=== PATIENT | male | born 1965 | race Caucasian/White ===

== ENCOUNTER 2017-12-25 14:01 | Inpatient (IN) | payer OTHER ==
[2017-12-25 15:26] VITALS: BMI 25.0
--- NOTE | 2017-12-25 20:52 | HP ---
CIWA Score - CIWA Score Nausea/Vomitin-No Nausea/No Vomiting Muscle Tremors: 4-Moderate,w/Arms Extend Anxiety: 3 Agitation: 3 Paroxysmal Sweats: 3 Orientation: 3-Disoriented Date>2 days Tacttile Disturbances: 0-None Auditory Disturbances: 0-None Visual Disturbances: 0-None Headache: 0-None Present CIWA-Ar Total Score: 16 Admission ROS BHS - HPI Chief Complaint: SEEKING DETOX FOR ALCOHOLISM AND WITHDRAWAL SX'S Allergies/Adverse Reactions: Allergies Allergy/AdvReac Type Severity Reaction Status Date / Time No Known Allergies Allergy Verified 12/25/17 19:33 History of Present Illness: 52 Y.O. MALE WITH LONG HX/O ALCOHOLISM HERE FOR DETOX. SELF REFERRED. CLIENT IS KNOWN TO THIS PROGRAM. LAST HERE IN 2014. DENIES ANY DETOX SINCE. DENIES ANY SIGNIFICANT PERIOD OF CLEAN TIME. REPORTS HX/ OF NICOTINE DEP. DENIES MENTAL HEALTH, PAST, PRESENT SI/HI AND A/V HALLUCINATIONS Exam Limitations: No Limitations - Ebola screening Have you traveled outside of the country in the last 21 days: No (N) Have you had contact with anyone from an Ebola affected area: No Have you been sick,other than usual withdrawal symptoms: No Do you have a fever: No - Review of Systems Constitutional: Chills, Night Sweats EENT: reports: No Symptoms Reported Respiratory: reports: Cough Cardiac: reports: No Symptoms Reported GI: reports: Diarrhea, Poor Fluid Intake : reports: Frequency Musculoskeletal: reports: No Symptoms Reported Integumentary: reports: No Symptoms Reported Neuro: reports: No Symptoms reported Endocrine: reports: No Symptoms Reported Hematology: reports: No Symptoms Reported Psychiatric: reports: Anxious Other Systems: Reviewed and Negative Patient History - Patient Medical History Hx Anemia: No Hx Asthma: No Hx Chronic Obstructive Pulmonary Disease (COPD): No Hx Cancer: No Hx Cardiac Disorders: No Hx Congestive Heart Failure: No Hx Hypertension: No Hx Hypercholesterolemia: No Hx Pacemaker: No HX Cerebrovascular Accident: No Hx Seizures: No Hx Dementia: No Hx Diabetes: No Hx Gastrointestinal Disorders: No Hx Liver Disease: No Hx Genitourinary Disorders: No Hx Sexually Transmitted Disorders: No Hx Renal Disease (ESRD): No Hx Thyroid Disease: No Hx Human Immunodeficiency Virus (HIV): No Hx Hepatitis C: No Hx Depression: Yes (NO MED MGMT) Hx Suicide Attempt: No Hx Bipolar Disorder: No Hx Schizophrenia: No - Patient Surgical History Past Surgical History: Yes Hx Orthopedic Surgery: Yes (Nasal fx sx at age 7 yrs old.) Other Surgical History: REPAIR OF FRACTURE OF NASAL SEPTUM AGE 7 - PPD History Previous Implant?: Yes Documented Results: Negative w/proof Implanted On Prior [facility] Admission?: Yes Date: 01/16/15 PPD to be Administered?: Yes - Smoking Cessation Smoking history: Current every day smoker Have you smoked in the past 12 months: Yes Aproximately how many cigarettes per day: 30 Cigars Per Day: 0 Hx Chewing Tobacco Use: No Initiated information on smoking cessation: Yes 'Breaking Loose' booklet given: 12/25/17 - Substance & Tx. History Hx Alcohol Use: Yes Hx Substance Use: Yes Substance Use Type: Alcohol, Marijuana Hx Substance Use Treatment: Yes ([facility]) - Substances Abused BEER Route: Oral Frequency: Daily Amount used: OZ CANS Age of first use: 15 Date of Last Use: 12/25/17 THC Route: Smoking Frequency: Daily Amount used: DIME Age of first use: 15 Date of Last Use: 12/25/17 Family Disease History - Family Disease History Family Disease History: Diabetes: Father, Heart Disease: Father, Other: Brother (ALCOHOL) Admission Physical Exam S - Vital Signs Vital Signs: Vital Signs - 24 hr 12/25/17 15:25 Temperature 97.1 F L Pulse Rate 105 H Respiratory 18 Rate Blood Pressure 125/86 - Physical General Appearance: Yes: Appropriately Dressed, Alcohol on Breath, Tremorous, Anxious HEENTM: Yes: EOMI, Normocephalic, Normal Voice (TALKATIVE), JEREL, Pharynx Normal , Other (DRY MUCOUS MEMBRANES) Respiratory: Yes: Chest Non-Tender, Lungs Clear, Normal Breath Sounds, No Respiratory Distress, No Accessory Muscle Use, Other (NON PRODUCITVE COUGH) Neck: Yes: No masses,lesions,Nodules, Supple, Trachea in good position Breast: Yes: Breast Exam Deferred Cardiology: Yes: Regular Rhythm, Regular Rate, S1, S2 Abdominal: Yes: Normal Bowel Sounds, Non Tender, Flat, Soft Genitourinary: Yes: Within Normal Limits Back: Yes: Normal Inspection Musculoskeletal: Yes: full range of Motion, Gait Steady Extremities: Yes: Normal Capillary Refill, Normal Range of Motion, Non-Tender, Tremors 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, Fully Oriented, Alert, Motor Strength 5/5, Disoriented (REOEINTED TO DATE) Integumentary: Yes: Warm, Moist, Other (FLUSHING) Lymphatic: Yes: Within Normal Limits - Diagnostic (1) Alcohol dependence with uncomplicated withdrawal Current Visit: Yes Status: Chronic (2) Cannabis abuse, uncomplicated Current Visit: Yes Status: Chronic (3) Dry mucous membranes Current Visit: Yes Status: Acute (4) Nicotine dependence Current Visit: Yes Status: Chronic Qualifiers: Nicotine product type: cigarettes Substance use status: uncomplicated Qualified Code(s): F17.210 - Nicotine dependence, cigarettes, uncomplicated (5) Drug-induced mood disorder Current Visit: Yes Status: Suspected Cleared for Admission [facility] - Detox or Rehab [facility] Level of Care: Medically Managed Detox Regimen/Protocol: Librium Claeared for Rehab Admission: No S Breath Alcohol Content Breath Alcohol Content: 0.148 Urine Drug Screen - Results Drug Screen Negative: No Urine Drug Screen Results: THC-Marijuana
[2017-12-25] MEDS ORDERED: MAGNESIUM HYDROX 2400MG/30ML ORAL SUSPENSION 30 ML CUP PO PRN (21:05)
[2017-12-25] MEDS ORDERED: guaiFENesin/D-METHORPHAN HB 10 ML UNIT-DOSE CUPS PO PRN (21:05)
[2017-12-25] MEDS ORDERED: LOPERAMIDE HCL 2 MG CAPSULE PO PRN (21:05)
[2017-12-25] MEDS ORDERED: NICOTINE POLACRILEX 4 MG GUM BUC PRN (21:05)
[2017-12-25] MEDS ORDERED: ACETAMINOPHEN 325 MG TABLET (FP) PO PRN (21:11)
[2017-12-25] MEDS ORDERED: hydrOXYzine PAMOATE 50 MG CAPSULE (FP) PO PRN (21:12)
[2017-12-25] MEDS ORDERED: MAG HYDROX/AL HYDROX/SIMETH 30 ML UNIT-DOSE CUP PO PRN (21:12)
[2017-12-25] MEDS ORDERED: MAGNESIUM CITRATE 300 ML BOTTLE PO PRN (21:12)
[2017-12-25] MEDS ORDERED: IBUPROFEN 400 MG TABLET (FP) PO PRN (21:12)
[2017-12-25] MEDS ORDERED: P-EPHED 60MG/TRIPROLIDI 2.5MG TABLET PO PRN (21:14)
[2017-12-25] MEDS ORDERED: MELATONIN 5 MG TABLETS PO PRN (22:00)
[2017-12-25] MEDS: chlordiazePOXIDE HCL 25 MG CAPSULE PO SCH (22:30)
[2017-12-25] MEDS: THIAMINE HCL 100 MG TABLET (FP) PO SCH (22:30)
[2017-12-26] MEDS: chlordiazePOXIDE HCL 25 MG CAPSULE PO SCH ×4 (05:15→22:43)
[2017-12-26] MEDS: NICOTINE 21 MG/24 HOURS TOPICAL PATCH TD SCH (10:09)
[2017-12-26] MEDS: PRENATAL VITAMINS W/ FOLIC ACID TABLET (FP) PO SCH (10:09)
[2017-12-26 10:11] LABS: HEMOGLOBIN 16.7 GM/dL (11.7-16.9); MCH 30.1 pg (25.7-33.7); MCHC 34.1 g/dl (32.0-35.9); MEAN CELL VOLUME 88.1 fl (80-96); MEAN PLT VOLUME 9.7 fl (7.5-11.1); PLATELET COUNT 184 K/MM3 (134-434); RBC 5.57 M/mm3 (4.00-5.60); RDW 13.8 % (11.9-15.9); WHITE BLOOD COUNT 8.6 K/mm3 (4.0-10.0)
[2017-12-26 10:17] LABS: ALBUMIN 4.2 g/dl (3.4-5.0); ANION GAP 6 (8-16); BLOOD UREA NITROGEN 15 mg/dL (7-18); CALCIUM 8.9 mg/dL (8.5-10.1); CHLORIDE 103 mmol/L (98-107); CO2 31 mmol/L (21-32); CREATININE 0.9 mg/dL (0.7-1.3); GLUCOSE,RANDOM 97 mg/dL (74-106); POTASSIUM 4.3 mmol/L (3.5-5.1); SGOT/AST 27 U/L (15-37); SGPT/ALT 34 U/L (12-78); SODIUM 140 mmol/L (136-145)
[2017-12-26 10:19] LABS: ALK PHOS 75 U/L (45-117); BILIRUBIN,TOTAL 1.4 mg/dL (0.2-1.0); TOT PROT 7.8 g/dl (6.4-8.2)
--- NOTE | 2017-12-26 11:15 | PN ---
S CIWA - CIWA Score Nausea/Vomitin-Mild Nausea/No Vomiting Muscle Tremors: 4-Moderate,w/Arms Extend Anxiety: 3 Agitation: 3 Paroxysmal Sweats: 1-Minimal Palms Moist Orientation: 0-Oriented Tacttile Disturbances: 1-Very Mild Itch/Numbness Auditory Disturbances: 0-None Visual Disturbances: 0-None Headache: 0-None Present CIWA-Ar Total Score: 13 BHS Progress Note (SOAP) Subjective: sweat tremor anxiety restlessness trouble sleep at night gi distress Objective: 12/26/17 11:19 Vital Signs Temperature 96.4 F L 12/26/17 10:20 Pulse Rate 87 12/26/17 10:20 Respiratory Rate 20 12/26/17 10:20 Blood Pressure 124/88 12/26/17 10:20 O2 Sat by Pulse Oximetry (%) Laboratory Last Values WBC 8.6 K/mm3 (4.0-10.0) D 12/26/17 07:30 RBC 5.57 M/mm3 (4.00-5.60) 12/26/17 07:30 Hgb 16.7 GM/dL (11.7-16.9) 12/26/17 07:30 Hct 49.0 % (35.4-49) 12/26/17 07:30 MCV 88.1 fl (80-96) 12/26/17 07:30 MCH 30.1 pg (25.7-33.7) 12/26/17 07:30 MCHC 34.1 g/dl (32.0-35.9) 12/26/17 07:30 RDW 13.8 % (11.9-15.9) 12/26/17 07:30 Plt Count 184 K/MM3 (134-434) 12/26/17 07:30 MPV 9.7 fl (7.5-11.1) 12/26/17 07:30 Sodium 140 mmol/L (136-145) 12/26/17 07:30 Potassium 4.3 mmol/L (3.5-5.1) 12/26/17 07:30 Chloride 103 mmol/L (98-107) 12/26/17 07:30 Carbon Dioxide 31 mmol/L (21-32) D 12/26/17 07:30 Anion Gap 6 (8-16) L 12/26/17 07:30 BUN 15 mg/dL (7-18) 12/26/17 07:30 Creatinine 0.9 mg/dL (0.7-1.3) D 12/26/17 07:30 Creat Clearance w eGFR > 60 (>60) 12/26/17 07:30 Random Glucose 97 mg/dL (74-106) 12/26/17 07:30 Calcium 8.9 mg/dL (8.5-10.1) 12/26/17 07:30 Total Bilirubin 1.4 mg/dL (0.2-1.0) H D 12/26/17 07:30 AST 27 U/L (15-37) D 12/26/17 07:30 ALT 34 U/L (12-78) D 12/26/17 07:30 Alkaline Phosphatase 75 U/L (45-117) 12/26/17 07:30 Total Protein 7.8 g/dl (6.4-8.2) 12/26/17 07:30 Albumin 4.2 g/dl (3.4-5.0) 12/26/17 07:30 lab noted Assessment: 12/26/17 11:19 withdrawal sx Plan: continue detox
--- NOTE | 2017-12-26 12:04 | EKG ---
Test Reason : Blood Pressure : / mmHG Vent. Rate : 071 BPM Atrial Rate : 071 BPM P-R Int : 180 ms QRS Dur : 092 ms QT Int : 396 ms P-R-T Axes : 032 -18 011 degrees QTc Int : 430 ms NORMAL SINUS RHYTHM MINIMAL VOLTAGE CRITERIA FOR LVH, MAY BE NORMAL VARIANT BORDERLINE ECG NO PREVIOUS ECGS AVAILABLE Confirmed by ROSALBA JACK MD ([id number]) on 12/26/2017 12:04:02 PM Referred By: Confirmed By:ROSALBA JACK MD
[2017-12-26] MEDS: MENTHOL/PHENOL 1 EACH UD MM PRN (17:38)
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
[2017-12-26] MEDS: THIAMINE HCL 100 MG TABLET (FP) PO SCH (22:44)
[2017-12-27] MEDS: MENTHOL/PHENOL 1 EACH UD MM PRN ×5 (03:29→23:46)
[2017-12-27] MEDS: chlordiazePOXIDE HCL 25 MG CAPSULE PO SCH ×3 (06:19→16:57)
--- NOTE | 2017-12-27 06:52 | PN ---
[facility] Progress Note Note: I was called by the nurse, Ms. Michael Macias to evaluate patient who wanted to speak to a doctor. Patient complained that he has no privacy and would prefer a private room. He reports that the Psychiatrist was talking to his room mate with the blind drawn and he feels that was not enough privacy. Patient was incoherent and unable to specify what he wanted. In the middle of his dialogue, he asked me, " what is your name again doctor" I told him that I am a nurse practitioner and will provide him the care he needs. Patient states, " Oh, I want to talk to a real doctor, not a nurse." Nurse informed to leave a message in the book for an MD to see him. Psych. consult initiated. Will endorsed to the incoming shift to follow up.
--- NOTE | 2017-12-27 10:02 | PN ---
[facility] CIWA - CIWA Score Nausea/Vomitin-Mild Nausea/No Vomiting Muscle Tremors: 3 Anxiety: 3 Agitation: 2 Paroxysmal Sweats: 1-Minimal Palms Moist Orientation: 0-Oriented Tacttile Disturbances: 1-Very Mild Itch/Numbness Auditory Disturbances: 0-None Visual Disturbances: 0-None Headache: 0-None Present CIWA-Ar Total Score: 11 BHS Progress Note (SOAP) Subjective: patient preferred to discuss issues and concerns with MD the caption writer and MD met with the patient that the patient wants to go to [facility] outpatient aftercare addiction sweat tremor anxiety restlessness Objective: 12/27/17 10:01 Vital Signs Temperature 96.8 F L 12/27/17 06:40 Pulse Rate 68 12/27/17 06:40 Respiratory Rate 20 12/27/17 06:40 Blood Pressure 126/85 12/27/17 06:40 O2 Sat by Pulse Oximetry (%) Laboratory Last Values WBC 8.6 K/mm3 (4.0-10.0) D 12/26/17 07:30 RBC 5.57 M/mm3 (4.00-5.60) 12/26/17 07:30 Hgb 16.7 GM/dL (11.7-16.9) 12/26/17 07:30 Hct 49.0 % (35.4-49) 12/26/17 07:30 MCV 88.1 fl (80-96) 12/26/17 07:30 MCH 30.1 pg (25.7-33.7) 12/26/17 07:30 MCHC 34.1 g/dl (32.0-35.9) 12/26/17 07:30 RDW 13.8 % (11.9-15.9) 12/26/17 07:30 Plt Count 184 K/MM3 (134-434) 12/26/17 07:30 MPV 9.7 fl (7.5-11.1) 12/26/17 07:30 Sodium 140 mmol/L (136-145) 12/26/17 07:30 Potassium 4.3 mmol/L (3.5-5.1) 12/26/17 07:30 Chloride 103 mmol/L (98-107) 12/26/17 07:30 Carbon Dioxide 31 mmol/L (21-32) D 12/26/17 07:30 Anion Gap 6 (8-16) L 12/26/17 07:30 BUN 15 mg/dL (7-18) 12/26/17 07:30 Creatinine 0.9 mg/dL (0.7-1.3) D 12/26/17 07:30 Creat Clearance w eGFR > 60 (>60) 12/26/17 07:30 Random Glucose 97 mg/dL (74-106) 12/26/17 07:30 Calcium 8.9 mg/dL (8.5-10.1) 12/26/17 07:30 Total Bilirubin 1.4 mg/dL (0.2-1.0) H D 12/26/17 07:30 AST 27 U/L (15-37) D 12/26/17 07:30 ALT 34 U/L (12-78) D 12/26/17 07:30 Alkaline Phosphatase 75 U/L (45-117) 12/26/17 07:30 Total Protein 7.8 g/dl (6.4-8.2) 12/26/17 07:30 Albumin 4.2 g/dl (3.4-5.0) 12/26/17 07:30 RPR Titer Nonreactive (NONREACTIVE) 12/26/17 07:30 lab noted Assessment: 12/27/17 10:02 withdrawal sx Plan: continue detox
[2017-12-27] MEDS: PRENATAL VITAMINS W/ FOLIC ACID TABLET (FP) PO SCH (10:09)
[2017-12-27] MEDS: NICOTINE 21 MG/24 HOURS TOPICAL PATCH TD SCH (10:10)
[2017-12-27] MEDS: chlordiazePOXIDE HCL 25 MG CAPSULE PO PRN (18:25)
[2017-12-27] MEDS: THIAMINE HCL 100 MG TABLET (FP) PO SCH (22:45)
[2017-12-27] MEDS: chlordiazePOXIDE 5 MG CAPSULE PO SCH (22:46)
[2017-12-28] MEDS: chlordiazePOXIDE 5 MG CAPSULE PO SCH (04:17)
[2017-12-28] MEDS: MENTHOL/PHENOL 1 EACH UD MM PRN (04:18)
[2017-12-28] MEDS: chlordiazePOXIDE HCL 25 MG CAPSULE PO PRN (05:50)
--- NOTE | 2017-12-28 08:30 | DS ---
[facility] Detox Discharge Summary Admission Date: 12/25/17 Discharge Date: 12/28/17 - History Present History: Alcohol Dependence Additional Comments: 52 years old male admitted 12/25/17 for alcohol withdrawal sx tolerated the regimen well denied alcohol withdrawal sx preferred to go to [facility] out patient addiction clinic alert oriented x 3 no acute distress speech coherent and clear patient acknowledged [facility] for medical issues brief motivational intervention x 5" patient wants to maintain sober during the recovery process - Physical Exam Results Vital Signs: Vital Signs Temperature 98.1 F 12/28/17 06:12 Pulse Rate 63 12/28/17 06:12 Respiratory Rate 16 12/28/17 06:12 Blood Pressure 129/92 12/28/17 06:12 O2 Sat by Pulse Oximetry (%) Pertinent Admission Physical Exam Findings: withdrawal sx Vital Signs Temperature 98.1 F 12/28/17 06:12 Pulse Rate 63 12/28/17 06:12 Respiratory Rate 16 12/28/17 06:12 Blood Pressure 129/92 12/28/17 06:12 O2 Sat by Pulse Oximetry (%) Laboratory Last Values WBC 8.6 K/mm3 (4.0-10.0) D 12/26/17 07:30 RBC 5.57 M/mm3 (4.00-5.60) 12/26/17 07:30 Hgb 16.7 GM/dL (11.7-16.9) 12/26/17 07:30 Hct 49.0 % (35.4-49) 12/26/17 07:30 MCV 88.1 fl (80-96) 12/26/17 07:30 MCH 30.1 pg (25.7-33.7) 12/26/17 07:30 MCHC 34.1 g/dl (32.0-35.9) 12/26/17 07:30 RDW 13.8 % (11.9-15.9) 12/26/17 07:30 Plt Count 184 K/MM3 (134-434) 12/26/17 07:30 MPV 9.7 fl (7.5-11.1) 12/26/17 07:30 Sodium 140 mmol/L (136-145) 12/26/17 07:30 Potassium 4.3 mmol/L (3.5-5.1) 12/26/17 07:30 Chloride 103 mmol/L (98-107) 12/26/17 07:30 Carbon Dioxide 31 mmol/L (21-32) D 12/26/17 07:30 Anion Gap 6 (8-16) L 12/26/17 07:30 BUN 15 mg/dL (7-18) 12/26/17 07:30 Creatinine 0.9 mg/dL (0.7-1.3) D 12/26/17 07:30 Creat Clearance w eGFR > 60 (>60) 12/26/17 07:30 Random Glucose 97 mg/dL (74-106) 12/26/17 07:30 Calcium 8.9 mg/dL (8.5-10.1) 12/26/17 07:30 Total Bilirubin 1.4 mg/dL (0.2-1.0) H D 12/26/17 07:30 AST 27 U/L (15-37) D 12/26/17 07:30 ALT 34 U/L (12-78) D 12/26/17 07:30 Alkaline Phosphatase 75 U/L (45-117) 12/26/17 07:30 Total Protein 7.8 g/dl (6.4-8.2) 12/26/17 07:30 Albumin 4.2 g/dl (3.4-5.0) 12/26/17 07:30 RPR Titer Nonreactive (NONREACTIVE) 12/26/17 07:30 lab noted - Treatment Hospital Course: Detox Protocol Followed, Detoxed Safely, Responded well, Discharged Condition Good, Rehab Referral Accepted Patient has Accepted a Rehab Referral to: [facility] / - Medication Discharge Medications: Ambulatory Orders NK [No Known Home Medication] 01/14/15 - Diagnosis (1) Alcohol dependence with uncomplicated withdrawal Current Visit: Yes Status: Acute (2) Nicotine dependence Current Visit: Yes Status: Acute Qualifiers: Nicotine product type: cigarettes Substance use status: in withdrawal Qualified Code(s): F17.213 - Nicotine dependence, cigarettes, with withdrawal - AMA Did Patient Leave Against Medical Advice: No
[2017-12-28] MEDS ORDERED: chlordiazePOXIDE 5 MG CAPSULE PO ONE (09:00)
[2017-12-28] MEDS: PRENATAL VITAMINS W/ FOLIC ACID TABLET (FP) PO SCH (09:10)
[2017-12-28 09:45] LABS: URINE APPEARANCE SLCLOUDY; URINE BILIRUBIN NEGATIVE (<2.0 mg/dL); URINE COLOR YELLOW; URINE GLUCOSE (UA) NEGATIVE (NEGATIVE); URINE KETONE NEGATIVE (NEGATIVE); URINE LEUK ESTERASE NEGATIVE (NEGATIVE); URINE NITRITE NEGATIVE (NEGATIVE); URINE PROTEIN NEGATIVE (NEGATIVE); URINE UROBILINOGEN NEGATIVE mg/dL (0.2-1.0)
[2017-12-28 09:51] VITALS: BP 153/98; PULSE 95; TEMP 97.7
[2017-12-28 09:55] LABS: URINE BACTERIA RARE /hpf (NONE SEEN); URINE MUCUS FEW
[2017-12-28] MEDS ORDERED: chlordiazePOXIDE HCL 10 MG CAPSULE PO SCH (23:00)
== END 2017-12-28 09:14 | disposition home or self-care (01) | DRG 897 ==
LOC: YASAS 14:01 → Y6N 20:07
PROVIDERS: ADMIT Surgery; ATTEND Surgery
PROC: HZ2ZZZZ Detoxification Services for Substance Abuse Treatment (ICD-10-PCS; principal; 2017-12-25)
DX: F10.230 Alcohol dependence with withdrawal, uncomplicated (principal); F12.20 Cannabis dependence, uncomplicated; F17.213 Nicotine dependence, cigarettes, with withdrawal; F19.24 Other psychoactive substance dependence with psychoactive substance-induced mood disorder; R68.2 Dry mouth, unspecified
CPT/HCPCS: 36415; 80053; 81003; 81015; 85027; 86593; 93005; 93010

== ENCOUNTER 2022-03-29 15:47 | Inpatient (IN) | payer OTHER ==
[2022-03-29 18:03] VITALS: RESP 18; BMI 25.0
[2022-03-29] MEDS ORDERED: IBUPROFEN 600 MG TABLET (FP) PO PRN (18:36)
[2022-03-29] MEDS ORDERED: DICYCLOMINE HCL 10 MG CAPSULE PO PRN (18:36)
[2022-03-29] MEDS ORDERED: BISMUTH SUBSALICYLATE 524 MG/30 ML PO PRN (18:36)
[2022-03-29] MEDS ORDERED: BENZOCAINE/MENTHOL (CHLORASEPTIC ) LOZENGE MM PRN (18:36)
[2022-03-29] MEDS ORDERED: NICOTINE POLACRILEX 2 MG GUM BUC PRN (18:36)
[2022-03-29] MEDS ORDERED: IBUPROFEN 400 MG TABLET (FP) PO PRN (18:36)
[2022-03-29] MEDS ORDERED: LOPERAMIDE HCL 2 MG CAPSULE PO PRN (18:36)
[2022-03-29] MEDS ORDERED: ONDANSETRON *ODT* 4 MG TABLET SL PRN (18:36)
[2022-03-29] MEDS ORDERED: MAGNESIUM HYDROX 2400MG/30ML ORAL SUSPENSION 30 ML CUP PO PRN (18:36)
[2022-03-29] MEDS ORDERED: MAG HYDROX/AL HYDROX/SIMETH 30 ML UNIT-DOSE CUP PO PRN (18:36)
[2022-03-29] MEDS ORDERED: NICOTINE 10 MG CARTRIDGE (INHALER) IH PRN (18:36)
[2022-03-29] MEDS ORDERED: MAGNESIUM CITRATE 300 ML BOTTLE PO PRN (18:36)
[2022-03-29] MEDS ORDERED: ACETAMINOPHEN 325 MG TABLET (FP) PO PRN ×2 (18:36)
[2022-03-29] MEDS ORDERED: METHOCARBAMOL 500 MG TABLET PO PRN (18:36)
[2022-03-29] MEDS ORDERED: chlordiazePOXIDE HCL 25 MG CAPSULE PO PRN (18:49)
[2022-03-29] MEDS ORDERED: THIAMINE HCL 100 MG TABLET (FP) PO SCH (22:00)
[2022-03-29] MEDS ORDERED: MELATONIN 5 MG TABLETS PO SCH (22:00)
[2022-03-29] MEDS: hydrOXYzine PAMOATE 25 MG CAPSULE (FP) PO SCH (23:02)
[2022-03-29] MEDS: chlordiazePOXIDE HCL 25 MG CAPSULE PO SCH (23:02)
[2022-03-30 05:58] VITALS: BP 148/89; PULSE 64; TEMP 97
[2022-03-30] MEDS: chlordiazePOXIDE HCL 25 MG CAPSULE PO SCH ×2 (06:38→10:40)
[2022-03-30] MEDS: hydrOXYzine PAMOATE 25 MG CAPSULE (FP) PO SCH ×2 (06:39→10:40)
[2022-03-30] MEDS ORDERED: NICOTINE 14 MG/24 HOURS TOPICAL PATCH TD SCH (10:00)
[2022-03-30] MEDS ORDERED: PRENATAL VITAMINS W/ FOLIC ACID TABLET (FP) PO SCH (10:00)
[2022-03-31] MEDS ORDERED: chlordiazePOXIDE HCL 25 MG CAPSULE PO SCH (05:00)
[2022-04-01] MEDS ORDERED: chlordiazePOXIDE HCL 10 MG CAPSULE PO PRN
[2022-04-01] MEDS ORDERED: chlordiazePOXIDE HCL 10 MG CAPSULE PO SCH (05:00)
[2022-04-02] MEDS ORDERED: chlordiazePOXIDE HCL 10 MG CAPSULE PO SCH (05:00)
[2022-04-03] MEDS ORDERED: chlordiazePOXIDE HCL 10 MG CAPSULE PO ONE (05:00)
== END 2022-03-30 08:31 | disposition left against medical advice (07) | DRG 894 ==
LOC: YASAS 15:47 → Y3N 19:25
PROVIDERS: ADMIT Allergy & Immunology; ATTEND Surgery
PROC: HZ2ZZZZ Detoxification Services for Substance Abuse Treatment (ICD-10-PCS; principal; 2022-03-29)
DX: F10.230 Alcohol dependence with withdrawal, uncomplicated (principal); F12.20 Cannabis dependence, uncomplicated; F17.210 Nicotine dependence, cigarettes, uncomplicated; Z28.310 Unvaccinated for COVID-19
CPT/HCPCS: 87811; C9803-CS; U0003; U0005

== ENCOUNTER 2023-03-26 21:15 | Inpatient (IN) | payer OTHER ==
[2023-03-26 22:44] VITALS: TEMP 98; BMI 25.0
[2023-03-26] MEDS ORDERED: BISMUTH SUBSALICYLATE 524 MG/30 ML PO PRN (23:24)
[2023-03-26] MEDS ORDERED: MAG HYDROX/AL HYDROX/SIMETH 30 ML UNIT-DOSE CUP PO PRN (23:24)
[2023-03-26] MEDS ORDERED: MAGNESIUM HYDROX 2400MG/30ML ORAL SUSPENSION 30 ML CUP PO PRN (23:24)
[2023-03-26] MEDS ORDERED: BENZONATATE 200 MG CAPSULE PO PRN (23:24)
[2023-03-26] MEDS ORDERED: NICOTINE POLACRILEX 2 MG GUM BUC PRN (23:24)
[2023-03-26] MEDS ORDERED: DICYCLOMINE HCL 10 MG CAPSULE PO PRN (23:24)
[2023-03-26] MEDS ORDERED: hydrOXYzine PAMOATE 25 MG CAPSULE (FP) PO PRN (23:24)
[2023-03-26] MEDS ORDERED: METHOCARBAMOL 500 MG TABLET PO PRN (23:24)
[2023-03-26] MEDS ORDERED: LOPERAMIDE HCL 2 MG CAPSULE PO PRN (23:24)
[2023-03-26] MEDS ORDERED: ACETAMINOPHEN 325 MG TABLET (FP) PO PRN (23:24)
[2023-03-26] MEDS ORDERED: BENZOCAINE/MENTHOL (CHLORASEPTIC ) LOZENGE MM PRN (23:24)
[2023-03-26] MEDS ORDERED: NALOXONE HCL 0.4 MG/ML VIAL IM PRN (23:24)
[2023-03-26] MEDS ORDERED: IBUPROFEN 600 MG TABLET (FP) PO PRN (23:24)
[2023-03-26] MEDS ORDERED: NALOXONE HCL (KLOXXADO) 8 MG SPRAY NS PRN (23:24)
[2023-03-26] MEDS ORDERED: ONDANSETRON *ODT* 4 MG TABLET SL PRN (23:24)
[2023-03-26] MEDS ORDERED: IBUPROFEN 400 MG TABLET (FP) PO PRN (23:24)
[2023-03-26] MEDS ORDERED: guaiFENesin 600 MG TABLET.ER (FP) PO PRN (23:24)
[2023-03-26] MEDS ORDERED: POLYETHYLENE GLYCOL (HEALTHYLAX) 3350 17 GM PACKET PO PRN (23:24)
[2023-03-27 06:27] VITALS: BP 132/70; PULSE 79; RESP 18
[2023-03-27] MEDS ORDERED: PRENATAL VITAMINS W/ FOLIC ACID TABLET (FP) PO SCH (10:00)
[2023-03-27] MEDS ORDERED: NICOTINE 21 MG/24 HOURS TOPICAL PATCH TD SCH (10:00)
[2023-03-27 10:13] LABS: HEMATOCRIT 46.1 % (35.4-49); HEMOGLOBIN 15.9 GM/dL (11.7-16.9); MCH 29.5 pg (25.7-33.7); MCHC 34.5 g/dl (32.0-35.9); MEAN CELL VOLUME 85.3 fl (80-96); MEAN PLT VOLUME 9.3 fl (7.5-11.1); PLATELET COUNT 175 10^3/uL (134-434); RDW 13.2 % (11.9-15.9); WHITE BLOOD COUNT 5.6 K/mm3 (4.0-10.0)
[2023-03-27 10:29] LABS: POTASSIUM 4.3 mmol/L (3.5-5.1)
[2023-03-27 10:31] LABS: ALBUMIN 4.2 g/dl (3.4-5.0)
[2023-03-27 10:32] LABS: CALCIUM 8.7 mg/dL (8.5-10.1)
[2023-03-27 10:33] LABS: BLOOD UREA NITROGEN 20.3 mg/dL (7-18)
[2023-03-27 10:34] LABS: CREATININE 0.8 mg/dL (0.55-1.3)
[2023-03-27 10:36] LABS: BILIRUBIN,TOTAL 0.5 mg/dL (0.2-1); TOT PROT 7.4 g/dl (6.4-8.2)
[2023-03-27] MEDS ORDERED: MELATONIN 5 MG TABLETS PO SCH (22:00)
[2023-03-27] MEDS ORDERED: THIAMINE HCL 100 MG TABLET (FP) PO SCH (22:00)
== END 2023-03-27 08:54 | disposition home or self-care (01) | DRG 897 ==
LOC: YASAS 21:15 → Y3N 03-27 01:23
PROVIDERS: ADMIT Allergy & Immunology; ATTEND Allergy & Immunology
PROC: HZ2ZZZZ Detoxification Services for Substance Abuse Treatment (ICD-10-PCS; principal; 2023-03-27)
DX: F10.230 Alcohol dependence with withdrawal, uncomplicated (principal); F12.20 Cannabis dependence, uncomplicated; F17.210 Nicotine dependence, cigarettes, uncomplicated; Z59.00 Homelessness unspecified
CPT/HCPCS: 36415; 80053; 85027; 86780; 87635

== ENCOUNTER 2023-03-30 19:57 | Inpatient (IN) | payer OTHER ==
[2023-03-30 22:41] VITALS: BMI 25.0
[2023-03-30] MEDS ORDERED: ONDANSETRON *ODT* 4 MG TABLET SL PRN (23:46)
[2023-03-30] MEDS ORDERED: DICYCLOMINE HCL 10 MG CAPSULE PO PRN (23:46)
[2023-03-30] MEDS ORDERED: IBUPROFEN 400 MG TABLET (FP) PO PRN (23:46)
[2023-03-30] MEDS ORDERED: POLYETHYLENE GLYCOL (HEALTHYLAX) 3350 17 GM PACKET PO PRN (23:46)
[2023-03-30] MEDS ORDERED: guaiFENesin 600 MG TABLET.ER (FP) PO PRN (23:46)
[2023-03-30] MEDS ORDERED: BENZONATATE 200 MG CAPSULE PO PRN (23:46)
[2023-03-30] MEDS ORDERED: NICOTINE POLACRILEX 2 MG GUM BUC PRN (23:46)
[2023-03-30] MEDS ORDERED: METHOCARBAMOL 500 MG TABLET PO PRN (23:46)
[2023-03-30] MEDS ORDERED: MAG HYDROX/AL HYDROX/SIMETH 30 ML UNIT-DOSE CUP PO PRN (23:46)
[2023-03-30] MEDS ORDERED: LOPERAMIDE HCL 2 MG CAPSULE PO PRN (23:46)
[2023-03-30] MEDS ORDERED: IBUPROFEN 600 MG TABLET (FP) PO PRN (23:46)
[2023-03-30] MEDS ORDERED: BISMUTH SUBSALICYLATE 524 MG/30 ML PO PRN (23:46)
[2023-03-30] MEDS ORDERED: MAGNESIUM HYDROX 2400MG/30ML ORAL SUSPENSION 30 ML CUP PO PRN (23:46)
[2023-03-30] MEDS ORDERED: ACETAMINOPHEN 325 MG TABLET (FP) PO PRN (23:46)
[2023-03-30] MEDS ORDERED: P-EPHED 60MG/TRIPROLIDI 2.5MG TABLET PO PRN (23:46)
[2023-03-31] MEDS: BENZOCAINE/MENTHOL (CHLORASEPTIC ) LOZENGE MM PRN ×3 (09:20→18:03)
[2023-03-31] MEDS: PRENATAL VITAMINS W/ FOLIC ACID TABLET (FP) PO SCH (09:40)
[2023-03-31] MEDS: hydrOXYzine PAMOATE 25 MG CAPSULE (FP) PO PRN (14:41)
[2023-03-31] MEDS ORDERED: chlordiazePOXIDE HCL 25 MG CAPSULE PO PRN (15:17)
[2023-03-31] MEDS: chlordiazePOXIDE HCL 25 MG CAPSULE PO SCH ×2 (17:41→22:38)
[2023-03-31] MEDS ORDERED: MELATONIN 5 MG TABLETS PO SCH (22:00)
[2023-03-31] MEDS: MELATONIN 5 MG TABLETS PO SCH (22:37)
[2023-03-31] MEDS: THIAMINE HCL 100 MG TABLET (FP) PO SCH (22:38)
[2023-04-01] MEDS: chlordiazePOXIDE HCL 25 MG CAPSULE PO SCH ×4 (05:34→22:01)
[2023-04-01] MEDS: PRENATAL VITAMINS W/ FOLIC ACID TABLET (FP) PO SCH (10:33)
[2023-04-01] MEDS: BENZOCAINE/MENTHOL (CHLORASEPTIC ) LOZENGE MM PRN ×2 (10:34→16:36)
[2023-04-01] MEDS: MELATONIN 5 MG TABLETS PO SCH (22:00)
[2023-04-01] MEDS: THIAMINE HCL 100 MG TABLET (FP) PO SCH (22:01)
[2023-04-02] MEDS: BENZOCAINE/MENTHOL (CHLORASEPTIC ) LOZENGE MM PRN ×3 (01:46→10:47)
[2023-04-02] MEDS: chlordiazePOXIDE HCL 25 MG CAPSULE PO SCH ×2 (06:00→10:47)
[2023-04-02] MEDS: hydrOXYzine PAMOATE 25 MG CAPSULE (FP) PO PRN (06:18)
[2023-04-02 09:14] VITALS: RESP 18
[2023-04-02] MEDS: PRENATAL VITAMINS W/ FOLIC ACID TABLET (FP) PO SCH (10:47)
[2023-04-02 13:09] VITALS: BP 152/92; PULSE 79; TEMP 97.5
[2023-04-03] MEDS ORDERED: chlordiazePOXIDE HCL 10 MG CAPSULE PO PRN
[2023-04-03] MEDS ORDERED: chlordiazePOXIDE HCL 10 MG CAPSULE PO SCH (05:00)
[2023-04-04] MEDS ORDERED: chlordiazePOXIDE HCL 10 MG CAPSULE PO SCH (05:00)
[2023-04-05] MEDS ORDERED: chlordiazePOXIDE HCL 10 MG CAPSULE PO ONE (05:00)
== END 2023-04-02 12:46 | disposition left against medical advice (07) | DRG 894 ==
LOC: YASAS 19:57 → Y3N 03-31 00:39
PROVIDERS: ADMIT Allergy & Immunology; ATTEND Surgery
PROC: HZ2ZZZZ Detoxification Services for Substance Abuse Treatment (ICD-10-PCS; principal; 2023-03-31)
DX: F10.230 Alcohol dependence with withdrawal, uncomplicated (principal); F17.210 Nicotine dependence, cigarettes, uncomplicated
CPT/HCPCS: 87635; 87811

== ENCOUNTER 2023-04-17 23:15 | Inpatient (IN) | payer OTHER ==
[2023-04-18] MEDS ORDERED: LOPERAMIDE HCL 2 MG CAPSULE PO PRN (08:31)
[2023-04-18] MEDS ORDERED: NALOXONE HCL 0.4 MG/ML VIAL IM PRN (08:31)
[2023-04-18] MEDS ORDERED: MAG HYDROX/AL HYDROX/SIMETH 30 ML UNIT-DOSE CUP PO PRN (08:31)
[2023-04-18] MEDS ORDERED: COLLOIDAL OATMEAL 1 BAR EACH TP PRN (08:31)
[2023-04-18] MEDS ORDERED: AMMONIUM LACTATE 12% LOTION 225 GM BOTTLE TP PRN (08:31)
[2023-04-18] MEDS ORDERED: POLYETHYLENE GLYCOL (HEALTHYLAX) 3350 17 GM PACKET PO PRN (08:31)
[2023-04-18] MEDS ORDERED: hydrOXYzine PAMOATE 25 MG CAPSULE (FP) PO PRN (08:31)
[2023-04-18] MEDS ORDERED: ACETAMINOPHEN 325 MG TABLET (FP) PO PRN (08:31)
[2023-04-18] MEDS ORDERED: IBUPROFEN 400 MG TABLET (FP) PO PRN (08:31)
[2023-04-18] MEDS ORDERED: IBUPROFEN 600 MG TABLET (FP) PO PRN (08:31)
[2023-04-18] MEDS ORDERED: guaiFENesin 600 MG TABLET.ER (FP) PO PRN (08:31)
[2023-04-18] MEDS ORDERED: MAGNESIUM HYDROX 2400MG/30ML ORAL SUSPENSION 30 ML CUP PO PRN (08:31)
[2023-04-18] MEDS ORDERED: NALOXONE HCL (KLOXXADO) 8 MG SPRAY NS PRN (08:31)
[2023-04-18] MEDS: PRENATAL VITAMINS W/ FOLIC ACID TABLET (FP) PO SCH (10:52)
[2023-04-18] MEDS: NICOTINE 21 MG/24 HOURS TOPICAL PATCH TD SCH (10:52)
[2023-04-18] MEDS: BENZOCAINE/MENTHOL (CHLORASEPTIC ) LOZENGE MM PRN ×2 (11:11→17:35)
[2023-04-18 11:29] LABS: HEMATOCRIT 43.7 % (35.4-49); HEMOGLOBIN 15.2 GM/dL (11.7-16.9); MCH 29.3 pg (25.7-33.7); MCHC 34.7 g/dl (32.0-35.9); MEAN CELL VOLUME 84.4 fl (80-96); MEAN PLT VOLUME 9.7 fl (7.5-11.1); PLATELET COUNT 197 10^3/uL (134-434); RBC 5.18 M/mm3 (4.00-5.60); RDW 13.5 % (11.9-15.9)
[2023-04-18 11:32] LABS: POTASSIUM 4.7 mmol/L (3.5-5.1)
[2023-04-18 11:56] LABS: CALCIUM 9.6 mg/dL (8.5-10.1)
[2023-04-18 11:57] LABS: BLOOD UREA NITROGEN 22.5 mg/dL (7-18)
[2023-04-18 11:59] LABS: CREATININE 0.7 mg/dL (0.55-1.3)
[2023-04-18 12:00] LABS: SYPHILIS W/ RPR CONF NON-REACTIVE (NONREACTIVE)
[2023-04-18 12:01] LABS: TOT PROT 7.6 g/dl (6.4-8.2)
[2023-04-18 12:02] LABS: BILIRUBIN,TOTAL 0.5 mg/dL (0.2-1)
[2023-04-18] MEDS: MELATONIN 5 MG TABLETS PO SCH (21:32)
[2023-04-18] MEDS: THIAMINE HCL 100 MG TABLET (FP) PO SCH (21:33)
[2023-04-19] MEDS: BENZOCAINE/MENTHOL (CHLORASEPTIC ) LOZENGE MM PRN ×5 (01:19→19:54)
[2023-04-19 06:34] VITALS: RESP 18
[2023-04-19] MEDS: NICOTINE 21 MG/24 HOURS TOPICAL PATCH TD SCH ×2 (10:23→11:41)
[2023-04-19] MEDS: PRENATAL VITAMINS W/ FOLIC ACID TABLET (FP) PO SCH (10:23)
[2023-04-19 12:26] LABS: PH,URINE 5.5 (5.0-8.0); URINE APPEARANCE CLEAR; URINE BILIRUBIN NEGATIVE (NEGATIVE); URINE COLOR YELLOW; URINE GLUCOSE (UA) NEGATIVE (NEGATIVE); URINE KETONE NEGATIVE (NEGATIVE); URINE LEUK ESTERASE NEGATIVE (NEGATIVE); URINE NITRITE NEGATIVE (NEGATIVE); URINE PROTEIN TRACE (NEGATIVE); URINE UROBILINOGEN 0.2 mg/dL (0.2-1.0)
[2023-04-19] MEDS ORDERED: NICOTINE 21 MG/24 HOURS TOPICAL PATCH TD PRN (12:35)
[2023-04-19] MEDS ORDERED: PRENATAL VITAMINS W/ FOLIC ACID TABLET (FP) PO PRN (12:35)
[2023-04-19] MEDS: MELATONIN 5 MG TABLETS PO SCH (21:02)
[2023-04-19] MEDS: THIAMINE HCL 100 MG TABLET (FP) PO SCH (21:02)
[2023-04-19] MEDS: BENZONATATE 200 MG CAPSULE PO PRN (21:03)
[2023-04-20] MEDS: BENZOCAINE/MENTHOL (CHLORASEPTIC ) LOZENGE MM PRN ×5 (00:43→21:02)
[2023-04-20] MEDS: THIAMINE HCL 100 MG TABLET (FP) PO SCH (21:00)
[2023-04-20] MEDS: BENZONATATE 200 MG CAPSULE PO PRN (21:01)
[2023-04-20] MEDS ORDERED: SUVOREXANT 10 MG TABLET PO PRN (22:00)
[2023-04-21] MEDS: BENZOCAINE/MENTHOL (CHLORASEPTIC ) LOZENGE MM PRN ×3 (03:46→13:32)
[2023-04-21 06:43] VITALS: BP 138/88; PULSE 61; TEMP 97.8
== END 2023-04-21 14:36 | disposition left against medical advice (07) | DRG 894 ==
LOC: YASAS 23:15 → Y3W 04-18 08:44
PROVIDERS: ADMIT Allergy & Immunology; ATTEND Psychiatry & Neurology Pain Medicine
PROC: HZ42ZZZ Group Counseling for Substance Abuse Treatment, Cognitive-Behavioral (ICD-10-PCS; principal; 2023-04-18)
DX: F10.20 Alcohol dependence, uncomplicated (principal); F12.20 Cannabis dependence, uncomplicated; F17.210 Nicotine dependence, cigarettes, uncomplicated; F19.24 Other psychoactive substance dependence with psychoactive substance-induced mood disorder; Z59.02 Unsheltered homelessness
CPT/HCPCS: 26055; 36415; 80053; 81003; 85027; 86780; 86803; 87635; 87811

== ENCOUNTER 2024-05-19 19:09 | Inpatient (IN) | payer OTHER ==
[2024-05-19 19:59] VITALS: BMI 25.7
[2024-05-19] MEDS ORDERED: NALOXONE (NARCAN) HCL 4 MG/0.1 ML SPRAY NS PRN (21:35)
[2024-05-19] MEDS ORDERED: BISMUTH SUBSALICYLATE 524 MG/30 ML PO PRN (21:35)
[2024-05-19] MEDS ORDERED: ACETAMINOPHEN 325 MG TABLET (FP) PO PRN (21:35)
[2024-05-19] MEDS ORDERED: POLYETHYLENE GLYCOL (HEALTHYLAX) 3350 17 GM PACKET PO PRN (21:35)
[2024-05-19] MEDS ORDERED: LOPERAMIDE HCL 2 MG CAPSULE PO PRN (21:35)
[2024-05-19] MEDS ORDERED: BENZOCAINE/MENTHOL (CHLORASEPTIC ) LOZENGE MM PRN (21:35)
[2024-05-19] MEDS ORDERED: NICOTINE POLACRILEX 4 MG GUM BUC PRN (21:35)
[2024-05-19] MEDS ORDERED: DICYCLOMINE HCL 10 MG CAPSULE PO PRN (21:35)
[2024-05-19] MEDS ORDERED: guaiFENesin 600 MG TABLET.ER (FP) PO PRN (21:35)
[2024-05-19] MEDS ORDERED: MAGNESIUM HYDROX 2400MG/30ML ORAL SUSPENSION 30 ML CUP PO PRN (21:35)
[2024-05-19] MEDS ORDERED: MAG HYDROX/AL HYDROX/SIMETH 30 ML UNIT-DOSE CUP PO PRN (21:35)
[2024-05-19] MEDS ORDERED: BENZONATATE 200 MG CAPSULE PO PRN (21:35)
[2024-05-19] MEDS ORDERED: IBUPROFEN 400 MG TABLET (FP) PO PRN (21:35)
[2024-05-19] MEDS ORDERED: METHOCARBAMOL 500 MG TABLET ONE (21:54)
[2024-05-19] MEDS ORDERED: IBUPROFEN 600 MG TABLET (FP) PO ONE (21:55)
[2024-05-19] MEDS: METHOCARBAMOL 500 MG TABLET PO PRN (21:57)
[2024-05-19] MEDS: IBUPROFEN 600 MG TABLET (FP) PO PRN (21:58)
[2024-05-19] MEDS: MELATONIN 5 MG TABLETS PO SCH (22:47)
[2024-05-19] MEDS: THIAMINE 100 MG TABLET PO SCH (22:48)
[2024-05-20] MEDS: PRENATAL VITAMINS W/ FOLIC ACID TABLET (FP) PO SCH (10:00)
[2024-05-20] MEDS: levETIRAcetam 500 MG TABLET (FP) PO SCH (10:00)
[2024-05-20] MEDS: NICOTINE 21 MG/24 HOURS TOPICAL PATCH TD SCH (10:01)
[2024-05-20] MEDS: LORazepam 2 MG TABLET PO SCH (10:03)
[2024-05-20 14:33] LABS: BASO % 0.6 % (0-2.0); EOS % 1.3 % (0-4.5); HEMATOCRIT 44.9 % (35.4-49); HEMOGLOBIN 14.8 GM/dL (11.7-16.9); LYMPH % 19.3 % (8-40); MCH 27.9 pg (25.7-33.7); MCHC 32.9 g/dl (32.0-35.9); MEAN CELL VOLUME 84.8 fl (80-96); MEAN PLT VOLUME 9.4 fl (7.5-11.1); MONO % 9.1 % (3.8-10.2); NEUT % 69.7 % (42.8-82.8); PLATELET COUNT 170 10^3/uL (134-434); RDW 13.9 % (11.9-15.9); WHITE BLOOD COUNT 5.9 K/mm3 (4.0-10.0)
[2024-05-20 14:39] LABS: POTASSIUM 4.1 mmol/L (3.5-5.1)
[2024-05-20 14:47] LABS: CALCIUM 8.9 mg/dL (8.5-10.1)
[2024-05-20 14:48] LABS: ALBUMIN 3.9 g/dl (3.4-5.0)
[2024-05-20 14:51] LABS: BILIRUBIN,TOTAL 1.1 mg/dL (0.2-1); CREATININE 0.7 mg/dL (0.55-1.3)
[2024-05-20 14:52] LABS: TOT PROT 7.3 g/dl (6.4-8.2)
[2024-05-20] MEDS: SUVOREXANT 10 MG TABLET PO PRN (22:12)
[2024-05-21] MEDS: LORazepam 1 MG TABLET PO SCH (05:57)
[2024-05-21] MEDS: ONDANSETRON *ODT* 4 MG TABLET SL PRN (05:59)
[2024-05-21] MEDS: amLODIPine BESYLATE 10 MG TABLET (FP) PO SCH (13:14)
[2024-05-21] MEDS: TRIMETHOBENZAMIDE HCL 200MG/2ML INJ IM ONE (16:48)
[2024-05-21] MEDS: LORazepam 1 MG TABLET PO PRN (19:42)
[2024-05-21] MEDS: hydrOXYzine PAMOATE 25 MG CAPSULE (FP) PO PRN (19:42)
[2024-05-22] MEDS ORDERED: LORazepam 0.5 MG TABLET PO PRN
[2024-05-22] MEDS: LORazepam 0.5 MG TABLET PO SCH (05:50)
[2024-05-22] MEDS: ACETAMINOPHEN 325 MG TABLET (FP) PO PRN (10:33)
[2024-05-22] MEDS ORDERED: METHYL SALICYLATE/MENTHOL 30 GM TUBE TP PRN (10:36)
[2024-05-22] MEDS: cloNIDine HCL 0.1 MG TABLET PO PRN (13:30)
[2024-05-22] MEDS: GABAPENTIN 100 MG CAPSULE PO PRN (14:38)
[2024-05-22] MEDS: LIDOCAINE PATCH REMOVAL MC SCH (22:17)
[2024-05-23] MEDS: LORazepam 0.5 MG TABLET PO ONE (05:55)
[2024-05-23] MEDS ORDERED: FLU VACC QS2022-23(6MOS UP)/PF 60 MCG/0.5 ML SYRINGE IM ONE (09:50)
[2024-05-23] MEDS: FLU VACCINE (FLULAVAL) PF 45 MCG/0.5 ML SYRINGE 2024-2025 IM ONE (10:43)
[2024-05-23] MEDS: LIDOCAINE 5% TOPICAL PATCH TP SCH (10:46)
[2024-05-23 11:36] VITALS: RESP 16
[2024-05-23 13:15] VITALS: BP 136/77; PULSE 85; TEMP 98.6
[2024-05-23] MEDS: NALOXONE (NYS OPIOID OVERDOSE PROGRAM) 4 MG/0.1 ML SPRAY NS PRN (15:01)
== END 2024-05-23 14:00 | disposition other institution (70) | DRG 897 ==
LOC: YASAS 19:09 → Y6N 22:13
PROVIDERS: ADMIT Allergy & Immunology; ATTEND Surgery
PROC: HZ2ZZZZ Detoxification Services for Substance Abuse Treatment (ICD-10-PCS; principal; 2024-05-19)
DX: F10.230 Alcohol dependence with withdrawal, uncomplicated (principal); F14.20 Cocaine dependence, uncomplicated; Z59.00 Homelessness unspecified; F12.20 Cannabis dependence, uncomplicated; F17.210 Nicotine dependence, cigarettes, uncomplicated; F25.0 Schizoaffective disorder, bipolar type; F10.24 Alcohol dependence with alcohol-induced mood disorder; F41.1 Generalized anxiety disorder; I10 Essential (primary) hypertension; Z86.69 Personal history of other diseases of the nervous system and sense organs
CPT/HCPCS: 36415; 71101-TC-LT-FY; 80053; 80305; 80307; 83036; 85025; 86780; 87811; 90656; 93005; 93010; G0008; Q0162

== ENCOUNTER 2024-08-19 08:24 | Inpatient (IN) | payer OTHER ==
[2024-08-19 08:48] VITALS: BMI 26.9
[2024-08-19] MEDS ORDERED: chlordiazePOXIDE HCL 25 MG CAPSULE PO PRN ×2 (09:27→16:06)
[2024-08-19] MEDS ORDERED: MAG HYDROX/AL HYDROX/SIMETH 30 ML UNIT-DOSE CUP PO PRN (09:31)
[2024-08-19] MEDS ORDERED: NICOTINE POLACRILEX 2 MG LOZENGE BC PRN (09:31)
[2024-08-19] MEDS ORDERED: POLYETHYLENE GLYCOL (HEALTHYLAX) 3350 17 GM PACKET PO PRN (09:31)
[2024-08-19] MEDS ORDERED: DICYCLOMINE HCL 10 MG CAPSULE PO PRN (09:31)
[2024-08-19] MEDS ORDERED: IBUPROFEN 400 MG TABLET (FP) PO PRN (09:31)
[2024-08-19] MEDS ORDERED: ONDANSETRON *ODT* 4 MG TABLET SL PRN (09:31)
[2024-08-19] MEDS ORDERED: BISMUTH SUBSALICYLATE 262 MG/15 ML BTL PO PRN (09:31)
[2024-08-19] MEDS ORDERED: IBUPROFEN 600 MG TABLET (FP) PO PRN (09:31)
[2024-08-19] MEDS ORDERED: BENZONATATE 200 MG CAPSULE PO PRN (09:31)
[2024-08-19] MEDS ORDERED: MAGNESIUM HYDROX 2400MG/30ML ORAL SUSPENSION 30 ML CUP PO PRN (09:31)
[2024-08-19] MEDS ORDERED: LOPERAMIDE HCL 2 MG CAPSULE PO PRN (09:31)
[2024-08-19] MEDS ORDERED: METHOCARBAMOL 500 MG TABLET PO PRN (09:31)
[2024-08-19] MEDS ORDERED: ACETAMINOPHEN 325 MG TABLET (FP) PO PRN (09:31)
[2024-08-19] MEDS ORDERED: levETIRAcetam 500 MG TABLET (FP) PO ONE (10:22)
[2024-08-19] MEDS ORDERED: PRENATAL VITAMINS W/ FOLIC ACID TABLET (FP) PO ONE (10:22)
[2024-08-19] MEDS ORDERED: NICOTINE 14 MG/24 HOURS TOPICAL PATCH TD ONE (10:22)
[2024-08-19] MEDS: NICOTINE 14 MG/24 HOURS TOPICAL PATCH TD SCH (10:26)
[2024-08-19] MEDS: levETIRAcetam 500 MG TABLET (FP) PO SCH (10:26)
[2024-08-19] MEDS: PRENATAL VITAMINS W/ FOLIC ACID TABLET (FP) PO SCH (10:26)
[2024-08-19] MEDS ORDERED: GABAPENTIN 100 MG CAPSULE PO PRN (16:04)
[2024-08-19] MEDS ORDERED: chlordiazePOXIDE HCL 25 MG CAPSULE PO SCH (17:00)
[2024-08-19] MEDS: chlordiazePOXIDE HCL 25 MG CAPSULE PO SCH (17:15)
[2024-08-19] MEDS: THIAMINE 100 MG TABLET PO SCH (22:07)
[2024-08-19] MEDS: MELATONIN 5 MG TABLETS PO SCH (22:07)
[2024-08-19] MEDS: BENZOCAINE/MENTHOL (CHLORASEPTIC ) LOZENGE MM PRN (22:08)
[2024-08-20] MEDS: chlordiazePOXIDE HCL 25 MG CAPSULE PO SCH (05:44)
[2024-08-20] MEDS: amLODIPine BESYLATE 10 MG TABLET (FP) PO SCH (10:35)
[2024-08-20 14:32] LABS: POTASSIUM 3.8 mmol/L (3.5-5.1)
[2024-08-20 14:35] LABS: HEMATOCRIT 41.9 % (35.4-49); HEMOGLOBIN 13.8 GM/dL (11.7-16.9); MCH 28.1 pg (25.7-33.7); MEAN CELL VOLUME 85.4 fl (80-96); MEAN PLT VOLUME 9.2 fl (7.5-11.1); PLATELET COUNT 180 10^3/uL (134-434); RBC 4.91 M/mm3 (4.00-5.60); RDW 14.9 % (11.9-15.9); WHITE BLOOD COUNT 4.3 K/mm3 (4.0-10.0)
[2024-08-20 14:50] LABS: ALBUMIN 3.6 g/dl (3.4-5.0); BLOOD UREA NITROGEN 16.8 mg/dL (7-18)
[2024-08-20 14:53] LABS: CREATININE 0.7 mg/dL (0.55-1.3)
[2024-08-20 14:54] LABS: BILIRUBIN,TOTAL 0.7 mg/dL (0.2-1); TOT PROT 6.5 g/dl (6.4-8.2)
[2024-08-21] MEDS ORDERED: chlordiazePOXIDE HCL 10 MG CAPSULE PO PRN
[2024-08-21] MEDS ORDERED: chlordiazePOXIDE HCL 25 MG CAPSULE PO SCH (05:00)
[2024-08-21] MEDS: chlordiazePOXIDE HCL 10 MG CAPSULE PO SCH (05:57)
[2024-08-21] MEDS: guaiFENesin 600 MG TABLET.ER (FP) PO PRN (22:03)
[2024-08-22] MEDS ORDERED: chlordiazePOXIDE HCL 10 MG CAPSULE PO PRN
[2024-08-22] MEDS ORDERED: chlordiazePOXIDE HCL 10 MG CAPSULE PO SCH (05:00)
[2024-08-22] MEDS: chlordiazePOXIDE HCL 10 MG CAPSULE PO SCH (05:56)
[2024-08-23] MEDS ORDERED: chlordiazePOXIDE HCL 10 MG CAPSULE PO SCH (05:00)
[2024-08-23] MEDS: chlordiazePOXIDE HCL 10 MG CAPSULE PO ONE (05:43)
[2024-08-24] MEDS ORDERED: chlordiazePOXIDE HCL 10 MG CAPSULE PO ONE (05:00)
[2024-08-24] MEDS: NALOXONE (NYS OPIOID OVERDOSE PROGRAM) 4 MG/0.1 ML SPRAY NS SCH (09:35)
[2024-08-25] MEDS: hydrOXYzine PAMOATE 25 MG CAPSULE (FP) PO PRN (10:28)
[2024-08-25] MEDS ORDERED: NICOTINE POLACRILEX 2 MG GUM BUC PRN (13:52)
[2024-08-25] MEDS: NICOTINE 14 MG/24 HOURS TOPICAL PATCH TD SCH (14:20)
[2024-08-25] MEDS: BENZOCAINE/MENTHOL (CHLORASEPTIC ) LOZENGE MM PRN (14:20)
[2024-08-26 13:01] VITALS: TEMP 98.4
[2024-08-27 10:07] VITALS: BP 143/88; PULSE 75; RESP 18
[2024-08-27] MEDS: NALOXONE (NYS OPIOID OVERDOSE PROGRAM) 4 MG/0.1 ML SPRAY NS SCH (12:40)
== END 2024-08-27 13:22 | disposition home or self-care (01) | DRG 895 ==
LOC: YASAS 08:24 → Y6N 10:15 → Y3N 08-25 18:15 → Y3NR 08-26 13:31 → Y3E 08-27 09:32
PROVIDERS: ADMIT Allergy & Immunology; ATTEND Psychiatry & Neurology Pain Medicine
PROC: HZ42ZZZ Group Counseling for Substance Abuse Treatment, Cognitive-Behavioral (ICD-10-PCS; principal; 2024-08-19)
DX: F10.20 Alcohol dependence, uncomplicated (principal); Z59.00 Homelessness unspecified; F12.20 Cannabis dependence, uncomplicated; F17.210 Nicotine dependence, cigarettes, uncomplicated; F19.24 Other psychoactive substance dependence with psychoactive substance-induced mood disorder; F25.0 Schizoaffective disorder, bipolar type; F41.1 Generalized anxiety disorder; G40.909 Epilepsy, unspecified, not intractable, without status epilepticus; I10 Essential (primary) hypertension
CPT/HCPCS: 36415; 80053; 80305; 80307; 85027; 87811

== ENCOUNTER 2024-10-19 20:17 | Inpatient (IN) | payer OTHER ==
[2024-10-19 20:35] VITALS: BMI 26.4
[2024-10-19] MEDS ORDERED: BISMUTH SUBSALICYLATE 524 MG/30 ML PO PRN (20:45)
[2024-10-19] MEDS ORDERED: DICYCLOMINE HCL 10 MG CAPSULE PO PRN (20:45)
[2024-10-19] MEDS ORDERED: ACETAMINOPHEN 325 MG TABLET (FP) PO PRN (20:45)
[2024-10-19] MEDS ORDERED: BENZONATATE 200 MG CAPSULE PO PRN (20:45)
[2024-10-19] MEDS ORDERED: IBUPROFEN 600 MG TABLET (FP) PO PRN (20:45)
[2024-10-19] MEDS ORDERED: ONDANSETRON *ODT* 4 MG TABLET SL PRN (20:45)
[2024-10-19] MEDS ORDERED: guaiFENesin 600 MG TABLET.ER (FP) PO PRN (20:45)
[2024-10-19] MEDS ORDERED: IBUPROFEN 400 MG TABLET (FP) PO PRN (20:45)
[2024-10-19] MEDS ORDERED: LOPERAMIDE HCL 2 MG CAPSULE PO PRN (20:45)
[2024-10-19] MEDS ORDERED: MAG HYDROX/AL HYDROX/SIMETH 30 ML UNIT-DOSE CUP PO PRN (20:45)
[2024-10-19] MEDS ORDERED: POLYETHYLENE GLYCOL (HEALTHYLAX) 3350 17 GM PACKET PO PRN (20:45)
[2024-10-19] MEDS ORDERED: NICOTINE POLACRILEX 4 MG GUM BUC PRN (20:45)
[2024-10-19] MEDS ORDERED: NALOXONE (NARCAN) HCL 4 MG/0.1 ML SPRAY NS PRN (20:45)
[2024-10-19] MEDS ORDERED: MAGNESIUM HYDROX 2400MG/30ML ORAL SUSPENSION 30 ML CUP PO PRN (20:45)
[2024-10-19] MEDS: THIAMINE 100 MG TABLET PO SCH (23:10)
[2024-10-19] MEDS: MELATONIN 5 MG TABLETS PO SCH (23:21)
[2024-10-19] MEDS: BENZOCAINE/MENTHOL (CHLORASEPTIC ) LOZENGE MM PRN (23:49)
[2024-10-20] MEDS ORDERED: chlordiazePOXIDE HCL 25 MG CAPSULE PO PRN (01:21)
[2024-10-20] MEDS: chlordiazePOXIDE HCL 25 MG CAPSULE PO ONE (03:24)
[2024-10-20] MEDS: chlordiazePOXIDE HCL 25 MG CAPSULE PO SCH (05:30)
[2024-10-20] MEDS: amLODIPine BESYLATE 10 MG TABLET (FP) PO SCH (09:53)
[2024-10-20] MEDS: PRENATAL VITAMINS W/ FOLIC ACID TABLET (FP) PO SCH (09:53)
[2024-10-20] MEDS: levETIRAcetam 250 MG TABLET PO SCH (09:53)
[2024-10-20] MEDS: NICOTINE 21 MG/24 HOURS TOPICAL PATCH TD SCH (09:54)
[2024-10-20 11:27] LABS: HEMATOCRIT 43.6 % (35.4-49); HEMOGLOBIN 15.1 GM/dL (11.7-16.9); MCH 29.5 pg (25.7-33.7); MCHC 34.7 g/dl (32.0-35.9); MEAN CELL VOLUME 84.9 fl (80-96); MEAN PLT VOLUME 9.4 fl (7.5-11.1); PLATELET COUNT 186 10^3/uL (134-434); RBC 5.14 M/mm3 (4.00-5.60); RDW 13.6 % (11.9-15.9); WHITE BLOOD COUNT 4.6 K/mm3 (4.0-10.0)
[2024-10-20 12:25] LABS: POTASSIUM 4.3 mmol/L (3.5-5.1)
[2024-10-20 12:27] LABS: ALBUMIN 3.8 g/dl (3.4-5.0)
[2024-10-20 12:28] LABS: BLOOD UREA NITROGEN 16.8 mg/dL (7-18)
[2024-10-20 12:32] LABS: BILIRUBIN,TOTAL 0.4 mg/dL (0.2-1); TOT PROT 6.8 g/dl (6.4-8.2)
[2024-10-20 12:34] LABS: CALCIUM 8.9 mg/dL (8.5-10.1)
[2024-10-21] MEDS: chlordiazePOXIDE HCL 25 MG CAPSULE PO SCH (06:00)
[2024-10-21] MEDS: chlordiazePOXIDE HCL 10 MG CAPSULE PO SCH (17:28)
[2024-10-21] MEDS ORDERED: NICOTINE POLACRILEX 2 MG LOZENGE BC PRN (18:22)
[2024-10-21] MEDS: METHOCARBAMOL 500 MG TABLET PO PRN (22:10)
[2024-10-22] MEDS ORDERED: chlordiazePOXIDE HCL 10 MG CAPSULE PO PRN
[2024-10-22] MEDS: chlordiazePOXIDE HCL 10 MG CAPSULE PO SCH (05:33)
[2024-10-22] MEDS: hydrOXYzine PAMOATE 25 MG CAPSULE (FP) PO PRN (17:44)
[2024-10-23] MEDS: chlordiazePOXIDE HCL 10 MG CAPSULE PO SCH (05:38)
[2024-10-23] MEDS: NALTREXONE HCL 50 MG TABLET PO ONE (10:36)
[2024-10-24] MEDS: chlordiazePOXIDE HCL 10 MG CAPSULE PO ONE (05:40)
[2024-10-24 07:50] VITALS: RESP 18
[2024-10-24 09:38] VITALS: BP 126/71; PULSE 75; TEMP 97.5
== END 2024-10-24 11:13 | disposition home or self-care (01) | DRG 897 ==
LOC: YASAS 20:17 → Y6N 23:10
PROVIDERS: ADMIT Allergy & Immunology; ATTEND Allergy & Immunology
PROC: HZ2ZZZZ Detoxification Services for Substance Abuse Treatment (ICD-10-PCS; principal; 2024-10-19)
DX: F10.230 Alcohol dependence with withdrawal, uncomplicated (principal); Z59.00 Homelessness unspecified; F12.20 Cannabis dependence, uncomplicated; F17.210 Nicotine dependence, cigarettes, uncomplicated; F10.280 Alcohol dependence with alcohol-induced anxiety disorder; I10 Essential (primary) hypertension; R73.9 Hyperglycemia, unspecified; Z86.69 Personal history of other diseases of the nervous system and sense organs
CPT/HCPCS: 36415; 80053; 80305; 80307; 83036; 85027; 86780; 93005; 93010

== ENCOUNTER 2024-11-24 15:24 | Inpatient (IN) | payer OTHER ==
[2024-11-24 16:56] VITALS: BMI 29.0
[2024-11-24] MEDS ORDERED: BENZONATATE 200 MG CAPSULE PO PRN (17:20)
[2024-11-24] MEDS ORDERED: POLYETHYLENE GLYCOL (HEALTHYLAX) 3350 17 GM PACKET PO PRN (17:20)
[2024-11-24] MEDS ORDERED: DICYCLOMINE HCL 10 MG CAPSULE PO PRN (17:20)
[2024-11-24] MEDS ORDERED: BISMUTH SUBSALICYLATE 524 MG/30 ML PO PRN (17:20)
[2024-11-24] MEDS ORDERED: NICOTINE POLACRILEX 2 MG GUM BUC PRN (17:20)
[2024-11-24] MEDS ORDERED: ONDANSETRON *ODT* 4 MG TABLET SL PRN (17:20)
[2024-11-24] MEDS ORDERED: IBUPROFEN 400 MG TABLET (FP) PO PRN (17:20)
[2024-11-24] MEDS ORDERED: ACETAMINOPHEN 325 MG TABLET (FP) PO PRN (17:20)
[2024-11-24] MEDS ORDERED: MAG HYDROX/AL HYDROX/SIMETH 30 ML UNIT-DOSE CUP PO PRN (17:20)
[2024-11-24] MEDS ORDERED: IBUPROFEN 600 MG TABLET (FP) PO PRN (17:20)
[2024-11-24] MEDS ORDERED: MAGNESIUM HYDROX 2400MG/30ML ORAL SUSPENSION 30 ML CUP PO PRN (17:20)
[2024-11-24] MEDS ORDERED: P-EPHED 60MG/TRIPROLIDI 2.5MG TABLET PO PRN (17:20)
[2024-11-24] MEDS ORDERED: guaiFENesin 600 MG TABLET.ER (FP) PO PRN (17:20)
[2024-11-24] MEDS ORDERED: LOPERAMIDE HCL 2 MG CAPSULE PO PRN (17:20)
[2024-11-24] MEDS ORDERED: NALOXONE (NARCAN) HCL 4 MG/0.1 ML SPRAY NS PRN (17:20)
[2024-11-24] MEDS ORDERED: NICOTINE POLACRILEX 2 MG LOZENGE BC PRN (17:20)
[2024-11-24] MEDS ORDERED: METOPROLOL TARTRATE 25 MG TABLET (FP) ONE (18:41)
[2024-11-24] MEDS: METOPROLOL TARTRATE 25 MG TABLET (FP) PO ONE (19:01)
[2024-11-24] MEDS: BENZOCAINE/MENTHOL (CHLORASEPTIC ) LOZENGE MM PRN (19:25)
[2024-11-24] MEDS: THIAMINE 100 MG TABLET PO SCH (22:12)
[2024-11-24] MEDS: hydrOXYzine PAMOATE 25 MG CAPSULE (FP) PO PRN (22:12)
[2024-11-24] MEDS: MELATONIN 5 MG TABLETS PO SCH (22:13)
[2024-11-25] MEDS: PRENATAL VITAMINS W/ FOLIC ACID TABLET (FP) PO SCH (09:02)
[2024-11-25] MEDS: NICOTINE 14 MG/24 HOURS TOPICAL PATCH TD SCH (09:02)
[2024-11-25] MEDS: amLODIPine BESYLATE 10 MG TABLET (FP) PO SCH (09:02)
[2024-11-25 11:27] LABS: HEMATOCRIT 43.2 % (40.1-51.0); HEMOGLOBIN 14.3 g/dL (13.7-17.5); MCHC 33.1 g/dl (32.3-36.5); MEAN CELL VOLUME 83.7 fl (79.0-92.2); MEAN PLT VOLUME 11.2 fl (9.4-12.4); PLATELET COUNT 197 x10^3/uL (163-337); RDW 12.6 % (12.2-16.1)
[2024-11-25 11:29] LABS: CHLORIDE 107 mmol/L (98-107); POTASSIUM 3.9 mmol/L (3.5-5.1); SODIUM 141 mmol/L (136-145)
[2024-11-25 11:32] LABS: CALCIUM 9.5 mg/dL (8.5-10.1); GLUCOSE,RANDOM 125 mg/dL (74-106)
[2024-11-25 11:33] LABS: ALBUMIN 3.9 g/dl (3.4-5.0); BLOOD UREA NITROGEN 17.5 mg/dL (7-18)
[2024-11-25 11:34] LABS: ANION GAP 7 mmol/L (4-13); CO2 27 mmol/L (21-32)
[2024-11-25 11:35] LABS: SGPT/ALT 34 U/L (13-61)
[2024-11-25 11:36] LABS: CREATININE 0.7 mg/dL (0.55-1.3)
[2024-11-25 11:37] LABS: ALK PHOS 78 U/L (45-117); BILIRUBIN,TOTAL 0.6 mg/dL (0.2-1); SGOT/AST 23 U/L (15-37); TOT PROT 7.1 g/dl (6.4-8.2)
[2024-11-25] MEDS: METHOCARBAMOL 500 MG TABLET PO PRN (14:20)
[2024-11-25 16:52] VITALS: BP 135/87; PULSE 72; RESP 16; TEMP 97.6
== END 2024-11-25 19:16 | disposition home or self-care (01) | DRG 897 ==
LOC: YASAS 15:24 → Y3N 18:15
PROVIDERS: ADMIT Allergy & Immunology; ATTEND Allergy & Immunology
PROC: HZ2ZZZZ Detoxification Services for Substance Abuse Treatment (ICD-10-PCS; principal; 2024-11-24)
DX: F10.20 Alcohol dependence, uncomplicated (principal); F12.20 Cannabis dependence, uncomplicated; G47.00 Insomnia, unspecified; F17.210 Nicotine dependence, cigarettes, uncomplicated; I10 Essential (primary) hypertension
CPT/HCPCS: 36415; 80053; 80305; 80307; 85027; 86780